=== PATIENT | female | born 1970 | race African-American/Black ===

== ENCOUNTER 2020-02-09 18:17 | Emergency (ER) | payer OTHER ==
[~2020-02-09] VITALS: Ht 154.9 cm; Wt 115.7 kg
[~2020-02-09 18:17] MED LIST: ATACAND16 MG PO; ATENOLOL25 MG PO; CLONAZEPAM1 MG; COZAAR100 MG; DOXYCYCLINE HY100 M2 PO; NEURONTIN250 MG/5 M PO; SYNTHROID88 MCG PO; TRAMADOL HCL50 MG; XANAX1 MG PO; [UNRECOGNIZED DRUG - OTHER]
[2020-02-09] MEDS ORDERED: METOPROLOL SUCC25 MG PO (18:42)
[2020-02-09] MEDS ORDERED: LEVOTHYROXINE88 MCG PO (18:42)
[2020-02-09] MEDS ORDERED: DULOXETINE HCL60 MG PO (18:42)
[2020-02-09] MEDS ORDERED: SIMVASTATIN20 MG PO (18:42)
[2020-02-09] MEDS ORDERED: LOSARTAN POTAS100 MG PO (18:42)
[2020-02-09] MEDS ORDERED: GABAPENTIN800 M1 PO (18:42)
[2020-02-09] MEDS ORDERED: MONTELUKAST SOD10 MG PO (18:43)
[2020-02-09] MEDS ORDERED: CLONAZEPAM2 MG PO (18:43)
[2020-02-09] MEDS ORDERED: DOXEPIN HCL100 MG PO (18:43)
== END 2020-02-09 22:37 | disposition home or self-care (01) ==
LOC: ER 18:17
DX: R07.89 Other chest pain (principal); D72.828 Other elevated white blood cell count; Z03.818 Encounter for observation for suspected exposure to other biological agents ruled out

== ENCOUNTER 2020-07-05 17:29 | Emergency (ER) | payer OTHER ==
[~2020-07-05] VITALS: Ht 154.9 cm; Wt 117.9 kg
[~2020-07-05 17:29] MED LIST changes: +CLONAZEPAM2 MG PO; +DOXEPIN HCL100 MG PO; +DULOXETINE HCL60 MG PO; +GABAPENTIN800 M1 PO; +LEVOTHYROXINE88 MCG PO; +LOSARTAN POTAS100 MG PO; +METOPROLOL SUCC25 MG PO; +MONTELUKAST SOD10 MG PO; +SIMVASTATIN20 MG PO
[2020-07-05] MEDS ORDERED: BACTRIM DS TAB1 EACH PO (21:09)
== END 2020-07-05 21:26 | disposition home or self-care (01) ==
LOC: ER 17:29
DX: N39.0 Urinary tract infection, site not specified (principal); R31.29 Other microscopic hematuria; R10.31 Right lower quadrant pain

== ENCOUNTER 2022-05-01 05:23 | Emergency (ER) | payer OTHER ==
[~2022-05-01] VITALS: Ht 152.4 cm; Wt 129.7 kg
[~2022-05-01 05:23] MED LIST changes: +BACTRIM DS TAB1 EACH PO
[2022-05-01] MEDS ORDERED: METFORMIN HCL500 M3 (05:40)
[2022-05-01] MEDS ORDERED: TRAMADOL HCL50 MG PO (11:08)
[2022-05-01] MEDS ORDERED: DICLOFENAC POTA50 MG PO (11:09)
== END 2022-05-01 11:27 | disposition home or self-care (01) ==
LOC: ER 05:23
DX: S89.82XA Other specified injuries of left lower leg, initial encounter (principal); W19.XXXA Unspecified fall, initial encounter; Y93.9 Activity, unspecified; Y92.9 Unspecified place or not applicable; S89.81XA Other specified injuries of right lower leg, initial encounter; Z91.040 Latex allergy status; Z88.8 Allergy status to other drugs, medicaments and biological substances; I10 Essential (primary) hypertension; E11.9 Type 2 diabetes mellitus without complications; Z79.84 Long term (current) use of oral hypoglycemic drugs; M17.0 Bilateral primary osteoarthritis of knee